=== PATIENT | male | born 1960 ===

== ENCOUNTER 2016-12-05 11:38 | Emergency (ER) | payer MEDICARE ==
[2016-12-05 11:46] VITALS: BP 131/77
[2016-12-05] MEDS ORDERED: BOOSTRIX IM ONE (12:07)
[2016-12-05] MEDS ORDERED: MOTRIN PO ONE (12:07)
--- NOTE | 2016-12-05 13:20 | XRay Report ---
Right foot 3 views: History: Foot pain. Findings: General osteopenia. No periosteal reaction or lytic lesion. Arthritic changes in the first tarsometatarsal joint. Small plantar spur. Impression: No evidence of acute fracture.
--- NOTE | 2016-12-05 22:24 | Emergency Department Report ---
Entered by TYRONE GAGNON, acting as scribe for ANETTE VIRGEN NP. ED Lower Extremity HPI - General Chief Complaint: Extremity Injury, Lower Stated Complaint: STEPPED ON LÁZARO NAIL Time Seen by Provider: 12/05/16 11:48 Source: patient Mode of arrival: Ambulatory Limitations: No Limitations - History of Present Illness Initial Comments: This is a 56 y/o male that is non-toxic, non-ill appearing, and in no acute distress with a PMHx of seizures, arthritis, IDDM, NV, and HTN with c/o right foot pain that began this morning at 1030. Patient states that he stepped on a lázaro nail this morning, and the nail subsequently went through his sandal and punctured his right foot. Patient states the nail did not completely go through his right foot. Rates pain a 10/10 in severity, which he describes as aching in quality. Aggravated with movement and weight bearing, and alleviated with nothing. Denies numbness and tingling. Denies CP, SOB, fever, chills, headache, stiff neck, bleeding, pus, drainage. Not UTD with tetanus shot. Allergic to penicillins. MD Complaint: foot injury (right) -: This morning Time: 10:30 Injury: Foot: Right Type of Injury: puncture wound (stepped on a nail) Place: home Severity: severe Severity scale (0 -10): 10 Improves With: nothing Worsens With: weight bearing, movement Context: stepped on nail Associated Symptoms: able to partially bear weight, ambulatory. denies: snap/ pop sensation, swelling, numbness, tingling, unable to bear weight - Related Data Home Medications Medication Instructions Recorded Confirmed Last Taken Aspirin [Aspirin BABY CHEW TAB] 81 mg PO QDAY 07/28/14 02/12/15 05/09/16 Lisinopril [Zestril] 20 mg PO QDAY 05/10/16 05/10/16 05/09/16 Metformin HCl [Fortamet ER] 1,000 mg PO BID 05/10/16 05/10/16 05/09/16 Previous Rx's Medication Instructions Recorded Last Taken Type Clopidogrel [Plavix] 75 mg PO QDAY #30 tablet 02/12/15 05/09/16 Rx Divalproex [Helena Barbosa] 250 mg PO TID #60 tablet 02/12/15 05/09/16 Rx Lovastatin [Altoprev] 40 mg PO QPM #30 tab.er.24h 02/12/15 Unknown Rx Ranitidine HCl [Zantac 150 MG TAB] 150 mg PO BID #60 tablet 02/12/15 Unknown Rx HYDROcodone/APAP 5-325 [[place] 1 each PO Q6HR PRN #20 tablet 05/10/16 Unknown Rx 5/325] Ibuprofen [Motrin 600 MG tab] 600 mg PO Q8H PRN #15 tablet 12/05/16 Unknown Rx Levofloxacin [Levaquin TAB] 500 mg PO QDAY #5 tablet 12/05/16 Unknown Rx Allergies Allergy/AdvReac Type Severity Reaction Status Date / Time Penicillins Allergy Unknown Verified 07/28/14 12:49 ED Review of Systems Comment: All other systems reviewed and negative Constitutional: denies: chills, fever Eyes: denies: eye pain, eye discharge, vision change ENT: denies: ear pain, throat pain Respiratory: denies: cough, orthopnea, shortness of breath, SOB with exertion, SOB at rest, stridor, wheezing Cardiovascular: denies: chest pain, palpitations, dyspnea on exertion, orthopnea , edema, syncope, paroxysmal nocturnal dyspnea Endocrine: no symptoms reported Gastrointestinal: denies: abdominal pain, nausea, vomiting, diarrhea Genitourinary: denies: urgency, dysuria Musculoskeletal: myalgia (right foot pain). denies: back pain, joint swelling, arthralgia Skin: denies: rash, lesions Neurological: denies: headache, weakness, numbness, paresthesias Psychiatric: denies: anxiety, depression Hematological/Lymphatic: denies: easy bleeding, easy bruising ED Past Medical Hx - Past Medical History Previous Medical History?: Yes Hx Hypertension: Yes Hx Heart Attack/AMI: Yes Hx Congestive Heart Failure: No Hx Diabetes: Yes (has no meds) Hx Arthritis: Yes Hx Seizures: Yes Hx Asthma: No Hx COPD: No Hx HIV: No Additional medical history: CAD - Surgical History Past Surgical History?: Yes Hx Coronary Stent: Yes Additional Surgical History: COLON SURGERY - Social History Smoking Status: Current Every Day Smoker Substance Use Type: Prescribed - Medications Home Medications: Home Medications Medication Instructions Recorded Confirmed Last Taken Type Aspirin [Aspirin BABY CHEW TAB] 81 mg PO QDAY 07/28/14 02/12/15 05/09/16 History Clopidogrel [Plavix] 75 mg PO QDAY #30 tablet 02/12/15 05/09/[address] [Helena Barbosa] 250 mg PO TID #60 tablet 02/12/15 05/09/16 Rx Lovastatin [Altoprev] 40 mg PO QPM #30 tab.er.24h 02/12/15 Unknown Rx Ranitidine HCl [Zantac 150 MG TAB] 150 mg PO BID #60 tablet 02/12/15 05/10/16 Unknown Rx HYDROcodone/APAP 5-325 [[place] 1 each PO Q6HR PRN #20 tablet 05/10/16 Unknown Rx 5/325] Lisinopril [Zestril] 20 mg PO QDAY 05/10/16 05/10/16 05/09/16 History Metformin HCl [Fortamet ER] 1,000 mg PO BID 05/10/16 05/10/16 05/09/16 History Ibuprofen [Motrin 600 MG tab] 600 mg PO Q8H PRN #15 tablet 12/05/16 Unknown Rx Levofloxacin [Levaquin TAB] 500 mg PO QDAY #5 tablet 12/05/16 Unknown Rx ED Physical Exam - General Limitations: No Limitations General appearance: alert, in no apparent distress - Head Head exam: Present: atraumatic, normocephalic - Eye Eye exam: Present: normal appearance, PERRL, EOMI Pupils: Present: normal accommodation - ENT ENT exam: Present: normal exam, normal orophraynx, mucous membranes moist, TM's normal bilaterally, normal external ear exam - Neck Neck exam: Present: normal inspection, full ROM. Absent: tenderness, meningismus, lymphadenopathy - Respiratory Respiratory exam: Present: normal lung sounds bilaterally. Absent: respiratory distress, wheezes, rales, rhonchi, stridor, chest wall tenderness, accessory muscle use, decreased breath sounds - Cardiovascular Cardiovascular Exam: Present: regular rate, normal rhythm, normal heart sounds. Absent: bradycardia, tachycardia, irregular rhythm, systolic murmur, diastolic murmur, rubs, gallop - GI/Abdominal GI/Abdominal exam: Present: soft, normal bowel sounds. Absent: distended, tenderness, guarding, rebound, rigid, diminished bowel sounds - Extremities Exam Extremities exam: Present: full ROM, normal capillary refill. Absent: tenderness, pedal edema, joint swelling, calf tenderness - Expanded Lower Extremity Exam Right Hip exam: Present: normal inspection, full ROM. Absent: tenderness, swelling, abrasion Upper Leg exam: Present: normal inspection, full ROM. Absent: tenderness, swelling Knee exam: Present: normal inspection, full ROM, full knee extension. Absent: tenderness, swelling, abrasion, laceration, ecchymosis, deformity, crepidus Lower Leg exam: Present: normal inspection, full ROM. Absent: tenderness, swelling, abrasion, Qiana's sign Ankle exam: Present: normal inspection, full ROM. Absent: tenderness, swelling , erythema, anterior draw sign Foot/Toe exam: Present: full ROM, puncture wound (very small puncture wound noted to plantar aspect of right foot with no purulent drainage, foreign body, or bleeding). Absent: tenderness, swelling, abrasion, laceration, ecchymosis, deformity, crepidus, dislocation, erythema, foreign body, calcaneal tenderness, tenderness at base of 5th metatarsal, nail avulsion, subungual hematoma Neuro vascular tendon exam: Present: no vascular compromise. Absent: pulse deficit, abnormal cap refill, motor deficit, sensory deficit, tendon deficit, extremity cold to touch, pallor, abnormal 2-point discrimination, decreased fine /light touch, foot drop, peroneal nerve deficit, significant pain with passive ROM of distal joint Gait: Positive: observed and limited by pain (limping gait due to right foot pain) 1 - Puncture wound - Back Exam Back exam: Present: normal inspection, full ROM. Absent: tenderness, CVA tenderness (R), CVA tenderness (L), muscle spasm, paraspinal tenderness, vertebral tenderness, rash noted - Neurological Exam Neurological exam: Present: alert, oriented X3, CN II-XII intact, normal gait, abnormal gait (limping gait due to right foot pain), reflexes normal. Absent: motor sensory deficit - Psychiatric Psychiatric exam: Present: normal affect, normal mood - Skin Skin exam: Present: warm, dry, intact. Absent: rash ED Course Vital Signs 12/05/16 11:43 Temperature 98.2 F Pulse Rate 80 Respiratory 20 Rate Blood Pressure 131/77 O2 Sat by Pulse 100 Oximetry - Reevaluation(s) Reevaluation #1: 12/05/16 12:19 Patient is laying in bed with no signs of distress. - Consultations Consultation #1: 12/05/16 13:[address] Urban (radiologist) and confirmed that there is no foreign body noted on x-ray imagining. ED Lower Extremity MDM - Medical Decision Making Ed course: This is a 56-year-old male that presents with puncture wound to right plantar 1- after my physical exam, pt recevied xray of right foot to r/o fx or foreign body x-ray results has been noitied to the pt with no questions noted by the pt. 2- pt received tetanus and ibuprofen AB. 3- patient received levofloxacin at the time of discharge and was instructed to finish full course of antibiotics. 4- patient was instructed to follow-up with his primary care doctor in 3-5 days or if symptoms worsen return back to emergency room as was possible. 5-the wound has been clean with saline and chlorhexidine and a sterile 4 x 4 dressing with tape has been applied at d/c ED Disposition Clinical Impression: Wound, open, puncture, Puncture wound of plantar aspect of foot Disposition: DC-01 TO HOME OR SELFCARE Is pt being admited?: No Does the pt Need Aspirin: No Condition: Stable Instructions: Ibuprofen (By mouth), Levofloxacin (By mouth), Puncture Wound (ED ), Acute Wound Care (ED) Additional Instructions: Follow-up with her primary care doctor in 3-5 days or if symptoms such as pus, drainage, swelling, numbness, tingling return back to emergency room as was possible. Take full course of antibiotics as prescribed. Prescriptions: Ibuprofen [Motrin 600 MG tab] 600 mg PO Q8H PRN #15 tablet PRN Reason: Pain Levofloxacin [Levaquin TAB] 500 mg PO QDAY #5 tablet Referrals: PRIMARY MD SHIKHA [Primary Care Provider] - 3-5 Days COLTON CUADRA JR, MD [Staff Physician] - 3-5 Days [facility] [Outside] - 3-5 Days [facility] [Outside] - 3-5 Days Forms: Work/School Release Form(ED) This documentation as recorded by the scribKALIN dougherty JASMINE,accurately reflects the service I personally performed and the decisions made by me,ANETTE VIRGEN, AMANDA.
== END 2016-12-05 14:12 | disposition home or self-care (01) ==
LOC: ED 11:38
DX: S91.331A Puncture wound without foreign body, right foot, initial encounter (principal); X58.XXXA Exposure to other specified factors, initial encounter; Y93.9 Activity, unspecified; Y92.9 Unspecified place or not applicable; Y99.9 Unspecified external cause status
CPT/HCPCS: 90471; 90715; 99283

== ENCOUNTER 2017-12-25 20:26 | Emergency (ER) | payer MEDICARE ==
[2017-12-25 21:51] VITALS: BP 184/90
[2017-12-26] MEDS ORDERED: PERCOCET 5/325 PO ONE (00:10)
--- NOTE | 2017-12-26 00:52 | XRay Report ---
FINAL REPORT EXAM: XR FOOT 3+V LT HISTORY: fall TECHNIQUE: Three views of the left foot were submitted. FINDINGS: There is no evidence of fracture or dislocation. The soft tissues are unremarkable. IMPRESSION: No acute fracture or dislocation.
--- NOTE | 2017-12-26 01:28 | Emergency Department Report ---
ED Lower Extremity HPI - General Chief Complaint: Fall Stated Complaint: FALL Time Seen by Provider: 12/26/17 01:22 Source: patient Mode of arrival: Ambulatory Limitations: No Limitations - History of Present Illness Initial Comments: 57-year-old male presents to the emergency room complaint of left foot pain status post falling while standing on a cane reaching for something in a closet today. Patient reported his pain a 10 out of 10. Patient reports a past medical history of arthritis and reports he is a diabetic but has no meds. Patient reports he has a history of seizures. She reports that he is taking Depakote dose is due tonight. Complaint: foot injury -: This evening Injury: Foot: Left Type of Injury: inversion Place: home Severity scale (0 -10): 10 Improves With: nothing Worsens With: weight bearing Associated Symptoms: swelling, able to partially bear weight - Related Data Home Medications Medication Instructions Recorded Confirmed Last Taken Aspirin [Aspirin BABY CHEW TAB] 81 mg PO QDAY 07/28/14 02/12/15 05/09/16 Lisinopril [Zestril] 20 mg PO QDAY 05/10/16 05/10/16 05/09/16 Metformin HCl [Fortamet ER] 1,000 mg PO BID 05/10/16 05/10/16 05/09/16 Previous Rx's Medication Instructions Recorded Last Taken Type Clopidogrel [Plavix] 75 mg PO QDAY #30 tablet 02/12/15 05/09/[address] [Depakote Dr] 250 mg PO TID #60 tablet 02/12/15 05/09/16 Rx Lovastatin [Altoprev] 40 mg PO QPM #30 tab.er.24h 02/12/15 Unknown Rx Ranitidine HCl [Zantac 150 MG TAB] 150 mg PO BID #60 tablet 02/12/15 Unknown Rx HYDROcodone/APAP 5-325 [[place] 1 each PO Q6HR PRN #20 tablet 05/10/16 Unknown Rx 5/325] Levofloxacin [Levaquin TAB] 500 mg PO QDAY #5 tablet 12/05/16 Unknown Rx Ibuprofen [Motrin 600 MG tab] 600 mg PO Q8H PRN #15 tablet 12/26/17 Unknown Rx Allergies Allergy/AdvReac Type Severity Reaction Status Date / Time Penicillins Allergy Unknown Verified 12/25/17 21:33 ED Review of Systems ROS: Stated complaint: FALL Other details as noted in HPI Constitutional: no symptoms reported Endocrine: no symptoms reported Gastrointestinal: denies: abdominal pain, nausea, diarrhea Musculoskeletal: joint swelling, arthralgia Skin: denies: rash, lesions Neurological: denies: numbness, paresthesias Psychiatric: denies: anxiety, depression ED Past Medical Hx - Past Medical History Hx Hypertension: Yes Hx Heart Attack/AMI: Yes Hx Congestive Heart Failure: No Hx Diabetes: Yes (has no meds) Hx Arthritis: Yes Hx Seizures: Yes Hx Asthma: No Hx COPD: No Hx HIV: No Additional medical history: CAD - Surgical History Hx Coronary Stent: Yes Additional Surgical History: COLON SURGERY - Social History Smoking Status: Current Every Day Smoker Substance Use Type: None - Medications Home Medications: Home Medications Medication Instructions Recorded Confirmed Last Taken Type Aspirin [Aspirin BABY CHEW TAB] 81 mg PO QDAY 07/28/14 02/12/15 05/09/16 History Clopidogrel [Plavix] 75 mg PO QDAY #30 tablet 02/12/15 05/09/[address] [Depakote Dr] 250 mg PO TID #60 tablet 02/12/15 05/09/16 Rx Lovastatin [Altoprev] 40 mg PO QPM #30 tab.er.24h 02/12/15 Unknown Rx Ranitidine HCl [Zantac 150 MG TAB] 150 mg PO BID #60 tablet 02/12/15 05/10/16 Unknown Rx HYDROcodone/APAP 5-325 [[place] 1 each PO Q6HR PRN #20 tablet 05/10/16 Unknown Rx 5/325] Lisinopril [Zestril] 20 mg PO QDAY 05/10/16 05/10/16 05/09/16 History Metformin HCl [Fortamet ER] 1,000 mg PO BID 05/10/16 05/10/16 05/09/16 History Levofloxacin [Levaquin TAB] 500 mg PO QDAY #5 tablet 12/05/16 Unknown Rx Ibuprofen [Motrin 600 MG tab] 600 mg PO Q8H PRN #15 tablet 12/26/17 Unknown Rx ED Physical Exam - General Limitations: No Limitations General appearance: alert, in no apparent distress - Head Head exam: Present: atraumatic, normocephalic - ENT ENT exam: Present: mucous membranes moist - Expanded Lower Extremity Exam Left Hip exam: Present: full ROM Upper Leg exam: Present: normal inspection Knee exam: Present: normal inspection Lower Leg exam: Present: normal inspection, full ROM. Absent: tenderness, swelling Ankle exam: Present: full ROM. Absent: tenderness Foot/Toe exam: Present: full ROM (able to move toes), tenderness, swelling. Absent: laceration, ecchymosis, deformity Neuro vascular tendon exam: Present: no vascular compromise. Absent: pulse deficit, abnormal cap refill, pallor - Neurological Exam Neurological exam: Present: alert, oriented X3 - Psychiatric Psychiatric exam: Present: normal affect, normal mood - Skin Skin exam: Present: warm, dry, intact, normal color. Absent: rash ED Course Vital Signs 12/25/17 21:34 Temperature 98.7 F Pulse Rate 73 Respiratory 16 Rate Blood Pressure 184/90 O2 Sat by Pulse 99 Oximetry ED Lower Extremity MDM - Radiology Data Radiology results: report reviewed, image reviewed FINAL REPORT EXAM: XR FOOT 3+V LT HISTORY: fall TECHNIQUE: Three views of the left foot were submitted. FINDINGS: There is no evidence of fracture or dislocation. The soft tissues are unremarkable. IMPRESSION: No acute fracture or dislocation. Transcribed By: RB Dictated By: SARWAT MONTELONGO MD Electronically Authenticated By: SARWAT MONTELONGO MD Signed Date/Time: 12/26/1746 DD/ TD/TT: 12/26/1746 - Medical Decision Making Patient has been evaluated by this provider fast track. X-ray shows patient has no acute fractures or dislocation Patient is given Percocet for pain management. Patient is also being given ice pack for swelling. ER telecommunications field engineer Will Timur bandage his foot and assess for need of crutches. Discussed the patient to take pain medication such as ibuprofen rest elevate where compression Timur bandage. If his symptoms persist or gets worse he needs to follow up with his primary care provider. Critical care attestation.: If time is entered above; I have spent that time in minutes in the direct care of this critically ill patient, excluding procedure time. ED Disposition Clinical Impression: Sprain of foot, left Qualifiers: Encounter type: initial encounter Qualified Code(s): S93.602A - Unspecified sprain of left foot, initial encounter Disposition: - TO HOME OR SELFCARE Is pt being admited?: No Does the pt Need Aspirin: No Condition: Stable Instructions: Foot Sprain (ED), Ankle Exercises (GEN) Additional Instructions: Please take pain medication as needed. Please wear a wrap. Elevate the foot as much as possible Ice for 20 minutes or 1 hour off 20 minutes or 1 hour off for the first 24 hours. Please try to avoid weightbearing for the first 2 days and advance as tolerated. If your foot pain persists please follow up with her primary care provider Prescriptions: Ibuprofen [Motrin 600 MG tab] 600 mg PO Q8H PRN #15 tablet PRN Reason: Pain Referrals: AMANDA BARCLAY MD [Primary Care Provider] - 3-5 Days Forms: Work/School Release Form(ED)
== END 2017-12-26 02:10 | disposition home or self-care (01) ==
LOC: ED 20:26
DX: S93.602A Unspecified sprain of left foot, initial encounter (principal); E11.9 Type 2 diabetes mellitus without complications; I11.0 Hypertensive heart disease with heart failure; M19.90 Unspecified osteoarthritis, unspecified site; F17.200 Nicotine dependence, unspecified, uncomplicated; Z79.82 Long term (current) use of aspirin; Z88.0 Allergy status to penicillin

== ENCOUNTER 2018-04-01 21:35 | Emergency (ER) | payer MEDICARE ==
[2018-04-01] MEDS ORDERED: CATAPRES PO STA (21:53)
[2018-04-01] MEDS ORDERED: TORADOL IM ONE (22:28)
--- NOTE | 2018-04-01 22:32 | Emergency Department Report ---
ED Back Pain/Injury HPI - General Chief Complaint: Back Pain/Injury Stated Complaint: BACK PAIN Time Seen by Provider: 04/01/18 22:28 Source: patient, EMS Limitations: No Limitations - History of Present Illness Initial Comments: 57-year-old male comes in for acute on chronic lower back pain after cleaning his house. Patient reports that the pain travels from his back to his stomach. Patient reports he has a history of back pain and [place] [facility] [place] [facility]. Patient denies any urinary or bowel incontinence. Has any fever or chills no nausea no vomiting. MD Complaint: back pain -: This afternoon Time: 16:00 Similar Symptoms Previously: Yes Place: home Radiation: abdomen Severity scale (0 -10): 8 Quality: sharp, aching Consistency: intermittent Improves With: none - Related Data Home Medications Medication Instructions Recorded Confirmed Last Taken Aspirin [Aspirin BABY CHEW TAB] 81 mg PO QDAY 07/28/14 02/12/15 05/09/16 Lisinopril [Zestril] 20 mg PO QDAY 05/10/16 05/10/16 05/09/16 Metformin HCl [Fortamet ER] 1,000 mg PO BID 05/10/16 05/10/16 05/09/16 Previous Rx's Medication Instructions Recorded Last Taken Type Clopidogrel [Plavix] 75 mg PO QDAY #30 tablet 02/12/15 05/09/[address] [Helena Dr] 250 mg PO TID #60 tablet 02/12/15 05/09/16 Rx Lovastatin [Altoprev] 40 mg PO QPM #30 tab.er.24h 02/12/15 Unknown Rx Ranitidine HCl [Zantac 150 MG TAB] 150 mg PO BID #60 tablet 02/12/15 Unknown Rx HYDROcodone/APAP 5-325 [Kountze 1 each PO Q6HR PRN #20 tablet 05/10/16 Unknown Rx 5/325] levoFLOXacin [Levaquin TAB] 500 mg PO QDAY #5 tablet 12/05/16 Unknown Rx Ibuprofen [Motrin 600 MG tab] 600 mg PO Q8H PRN #15 tablet 12/26/17 Unknown Rx Ketorolac [Toradol] 10 mg PO Q6H PRN #20 tablet 04/02/18 Unknown Rx Allergies Allergy/AdvReac Type Severity Reaction Status Date / Time Penicillins Allergy Unknown Verified 12/25/17 21:33 ED Review of Systems ROS: Stated complaint: BACK PAIN Other details as noted in HPI Comment: All other systems reviewed and negative Musculoskeletal: back pain ED Past Medical Hx - Past Medical History Previous Medical History?: Yes Hx Hypertension: Yes Hx Heart Attack/AMI: Yes Hx Congestive Heart Failure: No Hx Diabetes: Yes (has no meds) Hx Arthritis: Yes Hx Seizures: Yes Hx Asthma: No Hx COPD: No Hx HIV: No Additional medical history: CAD - Surgical History Past Surgical History?: Yes Hx Coronary Stent: Yes Additional Surgical History: COLON SURGERY - Social History Smoking Status: Current Every Day Smoker Substance Use Type: None - Medications Home Medications: Home Medications Medication Instructions Recorded Confirmed Last Taken Type Aspirin [Aspirin BABY CHEW TAB] 81 mg PO QDAY 07/28/14 02/12/15 05/09/16 History Clopidogrel [Plavix] 75 mg PO QDAY #30 tablet 02/12/15 05/09/[address] [Helena Dr] 250 mg PO TID #60 tablet 02/12/15 05/09/16 Rx Lovastatin [Altoprev] 40 mg PO QPM #30 tab.er.24h 02/12/15 Unknown Rx Ranitidine HCl [Zantac 150 MG TAB] 150 mg PO BID #60 tablet 02/12/15 05/10/16 Unknown Rx HYDROcodone/APAP 5-325 [Kountze 1 each PO Q6HR PRN #20 tablet 05/10/16 Unknown Rx 5/325] Lisinopril [Zestril] 20 mg PO QDAY 05/10/16 05/10/16 05/09/16 History Metformin HCl [Fortamet ER] 1,000 mg PO BID 05/10/16 05/10/16 05/09/16 History levoFLOXacin [Levaquin TAB] 500 mg PO QDAY #5 tablet 12/05/16 Unknown Rx Ibuprofen [Motrin 600 MG tab] 600 mg PO Q8H PRN #15 tablet 12/26/17 Unknown Rx Ketorolac [Toradol] 10 mg PO Q6H PRN #20 tablet 04/02/18 Unknown Rx ED Physical Exam - General Limitations: No Limitations General appearance: alert, in no apparent distress - Head Head exam: Present: atraumatic, normocephalic - Eye Eye exam: Present: EOMI - Respiratory Respiratory exam: Present: normal lung sounds bilaterally. Absent: respiratory distress - Cardiovascular Cardiovascular Exam: Present: regular rate, normal rhythm. Absent: systolic murmur, diastolic murmur, rubs, gallop - Back Exam Back exam: Present: full ROM, tenderness - Neurological Exam Neurological exam: Present: alert, oriented X3 - Psychiatric Psychiatric exam: Present: normal affect, normal mood - Skin Skin exam: Present: warm, dry, intact, normal color. Absent: rash ED Course Vital Signs 04/01/18 04/01/18 04/01/18 21:39 21:55 22:00 Temperature 99.1 F Pulse Rate 56 L 57 L 58 L Respiratory 16 16 Rate Blood Pressure 200/90 207/97 Blood Pressure 207/97 [Left] O2 Sat by Pulse 100 97 Oximetry - Reevaluation(s) Reevaluation #1: 04/01/18 23:46 Patient reports he feels much better after having Toradol injection. Patient's blood pressure has come down to the 124 over 80s. ED Medical Decision Making - Radiology Data FINDINGS: Mild subsegmental atelectasis at the dependent portions of the lower lungs. Visualized heart is normal in size. Prominent calcification of the coronary arteries. Gallbladder contracted. No calcified gallstones. Liver, spleen, pancreas are grossly unremarkable. Mild nodular thickening of adrenal glands. No nephrolithiasis or hydronephrosis. Small vascular calcifications the renal sinus fat bilaterally. Mild bilateral perinephric fat stranding which may relate to sequelae of prior inflammation. This is stable from prior study. Aorta and IVC normal in caliber. Moderate severe calcified plaque along the aorta. Infrarenal aorta measures up to 2.1 centimeters in diameter. No ureteral or urinary bladder calculi. Urinary bladder and prostate gland are grossly unremarkable. No free fluid or lymphadenopathy in the pelvic cavity. [id number] diverticulosis of the left colon. No diverticulitis. Prior right hemicolectomy with small to large bowel anastomosis and right mid to upper abdomen. No focal inflammatory changes the bowel. Lumbar vertebral body heights are preserved. Moderate severe focal degenerative changes L5-S1 level. Bony pelvis is grossly intact. IMPRESSION: Source of hematuria is not definitely localized on today's exam. There are small vascular calcifications renal sinus fat bilaterally. Otherwise, no nephrolithiasis or hydronephrosis. Mild bilateral perinephric fat stranding similar prior study likely relating to sequelae of prior inflammation. Correlation with urinalysis suggested to ensure no subtle inflammation of the kidneys. Urinary bladder and prostate gland are grossly unremarkable. No other acute findings. - Medical Decision Making Patient has been evaluated by this provider in fast track. Patient was given Toradol injection for pain management. Urinalysis showed moderate amount of blood and glucouria greater than 500. CT ordered shows no acute abnormalities. Does show some inflammatory changes. And severe degenerative disc disease. Normal saline 1 L. Blood pressure has improved since having blood pressure medication given in fast track. Now 124/64 We'll discharge patient home on Toradol 10 mg 3 times a day when necessary and for patient to follow up with his primary care provider. Critical care attestation.: If time is entered above; I have spent that time in minutes in the direct care of this critically ill patient, excluding procedure time. ED Disposition Clinical Impression: Hypertension, essential Hematuria Qualifiers: Hematuria type: unspecified type Qualified Code(s): R31.9 - Hematuria, unspecified Degenerative disc disease Qualifiers: Spinal region: thoracolumbar Qualified Code(s): M51.35 - Other intervertebral disc degeneration, thoracolumbar region Back pain Qualifiers: Back pain location: low back pain Chronicity: chronic Back pain laterality: midline Sciatica presence: without sciatica Qualified Code(s): M54.5 - Low back pain; G89.29 - Other chronic pain Disposition: DC- TO HOME OR SELFCARE Is pt being admited?: No Does the pt Need Aspirin: No Condition: Stable Instructions: Hypertension (ED) Additional Instructions: Please take pain medication as prescribed. It's very important for you to follow up with her primary care provider for further evaluation of blood being in your urine. Prescriptions: Ketorolac [Toradol] 10 mg PO Q6H PRN #20 tablet PRN Reason: Pain Referrals: DOC,ED, MD [Primary Care Provider] - 3-5 Days Your,Provider [Other] - 3-5 Days
[2018-04-01 23:25] VITALS: BP 124/64
[2018-04-01 23:37] LABS: Bilirubin,Urine NEG (Negative); Blood,Urine MOD (Negative); Color,Urine Yellow (Yellow); Protein,Urine <15 mg/dL mg/dL (Negative); Urobilinogen,Urine < 2.0 mg/dL (<2.0)
[2018-04-02] MEDS ORDERED: NACL 0.9% 1000 ML 1,000 ML IV ONE (00:18)
[2018-04-02 00:34] LABS: Basophils # (Auto) 0.1 K/mm3 (0.0-0.1); Basophils % (Auto) 0.8 % (0.0-1.8); Eosinophils # (Auto) 0.3 K/mm3 (0.0-0.4); Eosinophils % (Auto) 2.2 % (0.0-4.3); Hemoglobin 12.8 gm/dl (11.8-15.2); Lymphocytes % (Auto) 13.8 % (13.4-35.0); Mean Corpuscular HGB Conc 34 % (32-34); Mean Corpuscular Hemoglobin 31 pg (28-32); Mean Corpuscular Volume 91 fl (84-94); Monocytes # (Auto) 1.4 K/mm3 (0.0-0.8); Monocytes % (Auto) 9.7 % (0.0-7.3); Platelet Count 212 K/mm3 (140-440); Red Blood Count 4.18 M/mm3 (3.65-5.03); Red Cell Distribution Width 14.1 % (13.2-15.2)
[2018-04-02 00:50] LABS: Alanine Aminotransferase 25 units/L (7-56); Albumin 4.3 g/dL (3.9-5); BUN/Creatinine Ratio 15; Blood Urea Nitrogen 9 mg/dL (9-20); Calcium 9.3 mg/dL (8.4-10.2); Hemolysis Index 18
--- NOTE | 2018-04-02 00:56 | Cat Scan Report ---
FINAL REPORT EXAM: CT ABDOMEN PELVIS WO CON HISTORY: back pain that radiates to the front with hematuria COMPARISON: CT abdomen pelvis from May 2016. TECHNIQUE: Contiguous axial images were obtained. Additional sagittal and coronal reformatted images were obtained. FINDINGS: Mild subsegmental atelectasis at the dependent portions of the lower lungs. Visualized heart is normal in size. Prominent calcification of the coronary arteries. Gallbladder contracted. No calcified gallstones. Liver, spleen, pancreas are grossly unremarkable. Mild nodular thickening of adrenal glands. No nephrolithiasis or hydronephrosis. Small vascular calcifications the renal sinus fat bilaterally. Mild bilateral perinephric fat stranding which may relate to sequelae of prior inflammation. This is stable from prior study. Aorta and IVC normal in caliber. Moderate severe calcified plaque along the aorta. Infrarenal aorta measures up to 2.1 centimeters in diameter. No ureteral or urinary bladder calculi. Urinary bladder and prostate gland are grossly unremarkable. No free fluid or lymphadenopathy in the pelvic cavity. Ytxs-jx-yjhbbehx diverticulosis of the left colon. No diverticulitis. Prior right hemicolectomy with small to large bowel anastomosis and right mid to upper abdomen. No focal inflammatory changes the bowel. Lumbar vertebral body heights are preserved. Moderate severe focal degenerative changes L5-S1 level. Bony pelvis is grossly intact. IMPRESSION: Source of hematuria is not definitely localized on today's exam. There are small vascular calcifications renal sinus fat bilaterally. Otherwise, no nephrolithiasis or hydronephrosis. Mild bilateral perinephric fat stranding similar prior study likely relating to sequelae of prior inflammation. Correlation with urinalysis suggested to ensure no subtle inflammation of the kidneys. Urinary bladder and prostate gland are grossly unremarkable. No other acute findings.
== END 2018-04-02 01:18 | disposition home or self-care (01) ==
LOC: ED 21:35
DX: M51.35 Other intervertebral disc degeneration, thoracolumbar region (principal); R31.9 Hematuria, unspecified; I10 Essential (primary) hypertension; I25.2 Old myocardial infarction; E11.9 Type 2 diabetes mellitus without complications; M19.90 Unspecified osteoarthritis, unspecified site; I25.10 Atherosclerotic heart disease of native coronary artery without angina pectoris; F17.200 Nicotine dependence, unspecified, uncomplicated; Z95.818 Presence of other cardiac implants and grafts; Z79.899 Other long term (current) drug therapy; Z88.0 Allergy status to penicillin
CPT/HCPCS: 36415; 74176; 80053; 81001; 82962; 85025; 96372; 99285; J1885; J7030

== ENCOUNTER 2020-05-06 11:42 | Emergency (ER) | payer MEDICARE ==
[2020-05-06 11:53] VITALS: BP 182/63
[2020-05-06] MEDS ORDERED: traMADol 50 MG TAB PO ONE (13:16)
[2020-05-06] MEDS ORDERED: KETOROLAC 60 MG/2 ML INJ IM ONE (13:16)
[2020-05-06] MEDS ORDERED: dexAMETHasone 20 MG/5 ML VIAL IM ONE (13:16)
--- NOTE | 2020-05-06 14:12 | Emergency Department Report ---
ED Back Pain/Injury HPI - General Chief Complaint: Back Pain/Injury Stated Complaint: BACK PAIN Time Seen by Provider: 05/06/20 13:09 Source: patient Mode of arrival: Ambulatory Limitations: No Limitations - History of Present Illness Initial Comments: Patient is a 59-year-old male presents emergency room with complaints of a "pulled back muscle" that occurred 3 days ago. Patient states that a tire went flat on his car and he went to change the tire and when he pulled off the tire he felt a pull in his right lower back. He states he believes he pulled a muscle. He states since then he has been having right lower back pain. He denies any fall. He denies any numbness, weakness, bowel or bladder incontinence, fever, nausea, vomiting, diarrhea, dysuria, hematuria, dark urine. He has a past medical history of HTN, CAD, DM, epilepsy. He has an allergy to penicillin. he states he has had this similar back pain in the past. - Related Data Home Medications Medication Instructions Recorded Confirmed Last Taken Aspirin [Aspirin BABY CHEW TAB] 81 mg PO QDAY 07/28/14 02/12/15 05/09/16 Metformin HCl [Fortamet ER] 1,000 mg PO BID 05/10/16 05/10/16 05/09/16 lisinopriL [Zestril] 20 mg PO QDAY 05/10/16 05/10/16 05/09/16 Previous Rx's Medication Instructions Recorded Last Taken Type Clopidogrel [Plavix] 75 mg PO QDAY #30 tablet 02/12/15 05/09/16 Rx Divalproex [Helena Barbosa] 250 mg PO TID #60 tablet 02/12/15 05/09/16 Rx Lovastatin [Altoprev] 40 mg PO QPM #30 tab.er.24h 02/12/15 Unknown Rx raNITIdine HCl [Zantac] 150 mg PO BID #60 tablet 02/12/15 Unknown Rx HYDROcodone/APAP 5-325 [Carter 1 each PO Q6HR PRN #20 tablet 05/10/16 Unknown Rx 5/325] levoFLOXacin [Levaquin TAB] 500 mg PO QDAY #5 tablet 12/05/16 Unknown Rx Ibuprofen [Motrin 600 MG tab] 600 mg PO Q8H PRN #15 tablet 12/26/17 Unknown Rx Ketorolac [Toradol] 10 mg PO Q6H PRN #20 tablet 04/02/18 Unknown Rx Naproxen [EC-Naprosyn] 500 mg PO BID PRN #14 tablet. 05/06/20 Unknown Rx methOCARBAMOL [Robaxin TAB] 500 mg PO BID PRN #14 tab 05/06/20 Unknown Rx Allergies Allergy/AdvReac Type Severity Reaction Status Date / Time Penicillins Allergy Unknown Verified 05/06/20 11:50 ED Review of Systems ROS: Stated complaint: BACK PAIN Other details as noted in HPI Comment: All other systems reviewed and negative ED Past Medical Hx - Past Medical History Hx Hypertension: Yes Hx Heart Attack/AMI: Yes Hx Congestive Heart Failure: No Hx Diabetes: Yes (has no meds) Hx Arthritis: Yes Hx Seizures: Yes Hx Asthma: No Hx COPD: No Hx HIV: No Additional medical history: CAD - Surgical History Hx Coronary Stent: Yes Additional Surgical History: COLON SURGERY - Social History Smoking Status: Never Smoker Substance Use Type: None - Medications Home Medications: Home Medications Medication Instructions Recorded Confirmed Last Taken Type Aspirin [Aspirin BABY CHEW TAB] 81 mg PO QDAY 07/28/14 02/12/15 05/09/16 History Clopidogrel [Plavix] 75 mg PO QDAY #30 tablet 02/12/15 05/09/16 Rx Divalproex [Helena Barbosa] 250 mg PO TID #60 tablet 02/12/15 05/09/16 Rx Lovastatin [Altoprev] 40 mg PO QPM #30 tab.er.24h 02/12/15 Unknown Rx raNITIdine HCl [Zantac] 150 mg PO BID #60 tablet 02/12/15 05/10/16 Unknown Rx HYDROcodone/APAP 5-325 [Carter 1 each PO Q6HR PRN #20 tablet 05/10/16 Unknown Rx 5/325] Metformin HCl [Fortamet ER] 1,000 mg PO BID 05/10/16 05/10/16 05/09/16 History lisinopriL [Zestril] 20 mg PO QDAY 05/10/16 05/10/16 05/09/16 History levoFLOXacin [Levaquin TAB] 500 mg PO QDAY #5 tablet 12/05/16 Unknown Rx Ibuprofen [Motrin 600 MG tab] 600 mg PO Q8H PRN #15 tablet 12/26/17 Unknown Rx Ketorolac [Toradol] 10 mg PO Q6H PRN #20 tablet 04/02/18 Unknown Rx Naproxen [EC-Naprosyn] 500 mg PO BID PRN #14 tablet. 05/06/20 Unknown Rx methOCARBAMOL [Robaxin TAB] 500 mg PO BID PRN #14 tab 05/06/20 Unknown Rx ED Physical Exam - General Limitations: No Limitations General appearance: alert, in no apparent distress - Head Head exam: Present: atraumatic, normocephalic - Eye Eye exam: Present: normal appearance - ENT ENT exam: Present: mucous membranes moist - Neck Neck exam: Present: normal inspection, full ROM. Absent: tenderness - Respiratory Respiratory exam: Present: normal lung sounds bilaterally. Absent: respiratory distress, wheezes, rales, rhonchi, stridor, chest wall tenderness, accessory muscle use, decreased breath sounds, prolonged expiratory - Cardiovascular Cardiovascular Exam: Present: regular rate, normal rhythm, normal heart sounds. Absent: systolic murmur, diastolic murmur, rubs, gallop - Back Exam Back exam: Present: normal inspection, full ROM, paraspinal tenderness (right lumbar paraspinal muscular ttp, no midline C-spine, T-spine or L-spine ttp, no step offs, no deformities). Absent: vertebral tenderness - Neurological Exam Neurological exam: Present: alert, oriented X3, CN II-XII intact, normal gait. Absent: motor sensory deficit - Psychiatric Psychiatric exam: Present: normal affect, normal mood - Skin Skin exam: Present: warm, dry, intact ED Course Vital Signs 05/06/20 05/06/20 05/06/20 11:52 13:30 13:31 Temperature 98.2 F Pulse Rate 65 Respiratory 18 18 18 Rate Blood Pressure 182/63 O2 Sat by Pulse 98 Oximetry ED Medical Decision Making - Radiology Data Radiology results: report reviewed Ordering Physician: SABAS RODRIGUEZ Date of Service: 05/06/20 Procedure(s): XR spine lumbosacral 2-3V Accession Number(s): [id number] cc: SABAS RODRIGUEZ Fluoro Time In Minutes: XR spine lumbosacral 2-3V INDICATION / CLINICAL INFORMATION: low back pain. COMPARISON: None FINDINGS: VERTEBRAE: No acute fracture. No significant malalignment. DISC SPACES / FACET JOINTS:Moderate multilevel degenerative changes, most pronounced at L5-S1. PARASPINAL SOFT TISSUES:No significant abnormality. ADDITIONAL FINDINGS: None. IMPRESSION: Moderate lower lumbar spondylosis. No acute process. Signer Name: Curtis Avelar MD Signed: 05/06/2020 2:24 PM Workstation Name: [id number] Transcribed By: DANIEL Dictated By: CURTIS MC MD Electronically Authenticated By: CURTIS MC MD Signed Date/Time: 05/06/201423 DD/ 22 TD/TT: - Medical Decision Making Patient is a 59-year-old male presents emergency room with complaints of a "pulled back muscle" that occurred 3 days ago. Patient states that a tire went flat on his car and he went to change the tire and when he pulled off the tire he felt a pull in his right lower back. He states he believes he pulled a muscle. He states since then he has been having right lower back pain. He denies any fall. He denies any numbness, weakness, bowel or bladder incontinence, fever, nausea, vomiting, diarrhea, dysuria, hematuria, dark urine. He has a past medical history of HTN, CAD, DM, epilepsy. He has an allergy to penicillin. he states he has had this similar back pain in the past. VSS. on exam:right lumbar paraspinal muscular ttp, no midline C-spine, T-spine or L- spine ttp, no step offs, no deformities, no focal neuro deficits. XR L-spine: Moderate lower lumbar spondylosis. No acute process. Patient given Decadron, Toradol, tramadol and symptoms completely resolved and patient was feeling much better and ready to go home. Discussed all findings with patient and answered questions. Patient does not have any red flag warning signs of back pain, no trauma, no unexplained weight loss, no focal neuro deficits, no fever, no IV drug use, no steroid use, no history of cancer. Patient given prescription for naproxen and Robaxin. Advised patient Please take medication as prescribed as needed. Do not drive or operate machinery while taking muscle relaxer Robaxin. May use ice pack, heating pad, rest, Epsom salt bath. Follow-up with your primary care doctor for reexamination. Return to emergency room for any new or worsening symptoms. - Differential Diagnosis Muscle strain, DDD, bulging disc, sciatica, spondylosis, spondylolisthesis Critical care attestation.: If time is entered above; I have spent that time in minutes in the direct care of this critically ill patient, excluding procedure time. ED Disposition Clinical Impression: Lumbar spondylosis Acute lumbar myofascial strain Qualifiers: Encounter type: initial encounter Qualified Code(s): S39.012A - Strain of muscle, fascia and tendon of lower back, initial encounter Disposition: TO HOME OR SELFCARE Is pt being admited?: No Does the pt Need Aspirin: No Condition: Stable Instructions: Osteoarthritis, Lumbar Strain Additional Instructions: Please take medication as prescribed as needed. Do not drive or operate machinery while taking muscle relaxer Robaxin. May use ice pack, heating pad, rest, Epsom salt bath. Follow-up with your primary care doctor for reexamination. Return to emergency room for any new or worsening symptoms. Prescriptions: Naproxen [EC-Naprosyn] 500 mg PO BID PRN #14 tablet. PRN Reason: pain methOCARBAMOL [Robaxin TAB] 500 mg PO BID PRN #14 tab PRN Reason: pain Referrals: KWAKU DUENAS MD [Staff Physician] - 3-[address] [facility] [Provider Group] - 3-5 Days Time of Disposition: 14:36 Print Language: FILIPINO
--- NOTE | 2020-05-06 14:28 | XRay Report ---
XR spine lumbosacral 2-3V INDICATION / CLINICAL INFORMATION: low back pain. COMPARISON: None FINDINGS: VERTEBRAE: No acute fracture. No significant malalignment. DISC SPACES / FACET JOINTS:Moderate multilevel degenerative changes, most pronounced at L5-S1. PARASPINAL SOFT TISSUES:No significant abnormality. ADDITIONAL FINDINGS: None. IMPRESSION: Moderate lower lumbar spondylosis. No acute process. Signer Name: Jorge Avelar MD Signed: 05/06/2020 2:24 PM Workstation Name: [id number]
== END 2020-05-06 14:52 | disposition home or self-care (01) ==
LOC: ED 11:42
DX: S39.012A Strain of muscle, fascia and tendon of lower back, initial encounter (principal); M47.896 Other spondylosis, lumbar region; I10 Essential (primary) hypertension; E11.9 Type 2 diabetes mellitus without complications; M19.90 Unspecified osteoarthritis, unspecified site; G40.909 Epilepsy, unspecified, not intractable, without status epilepticus; Z79.899 Other long term (current) drug therapy; Z88.0 Allergy status to penicillin; X58.XXXA Exposure to other specified factors, initial encounter; Y93.89 Activity, other specified; Y92.89 Other specified places as the place of occurrence of the external cause; Y99.8 Other external cause status
CPT/HCPCS: 72100; 96372; 99283; J1100; J1885

== ENCOUNTER 2020-06-17 09:16 | Emergency (ER) | payer MEDICARE ==
[2020-06-17 09:30] VITALS: BP 193/82
--- NOTE | 2020-06-17 09:37 | Event Note ---
ED Screening Note Date of service: 06/17/20 Time: 09:31 ED Screening Note: Pt complains of left facial pain and swelling along with dental significant swelling and tenderness noted to face This initial assessment/diagnostic orders/clinical plan/treatment(s) is/are subject to change based on patients health status, clinical progression and re- assessment by fellow clinical providers in the ED. Further treatment and workup at subsequent clinical providers discretion. Patient/guardian urged not to elope from the ED as their condition may be serious if not clinically assessed and managed. Initial orders include: labs CT
[2020-06-17] MEDS ORDERED: HYDROcodone/ACETAMINOPHEN 5-325 MG TAB PO ONE (11:19)
[2020-06-17] MEDS ORDERED: CLINDAMYCIN 150 MG/ML VIAL 6 ML IM ONE (11:19)
--- NOTE | 2020-06-17 11:26 | Emergency Department Report ---
ED ENT HPI - General Chief complaint: Skin/Abscess/Foreign Body Stated complaint: facial swelling Time Seen by Provider: 06/17/20 09:29 Source: patient Mode of arrival: Ambulatory Limitations: No Limitations - History of Present Illness Initial comments: Patient is a 59-year-old male who presents the emergency room with complaints of left upper dental pain that began 3 days ago. He states that yesterday when he woke up there was significant swelling to his face. He states that he saw his doctor and was placed on clindamycin 150 mg 4 times a day. He denies any fever, chills, vomiting, diarrhea, nausea, difficulty swallowing, difficulty breathing. He states he last saw a dentist 5 to 6 months ago and needs to have teeth extracted. He states he did have teeth extracted approximately 6 months ago but still needs to have more completed. He has a past medical history of CAD, HTN, HLD, DM, seizure. He has an allergy to penicillin. - Related Data Home Medications Medication Instructions Recorded Confirmed Last Taken Aspirin [Aspirin BABY CHEW TAB] 81 mg PO QDAY 07/28/14 02/12/15 05/09/16 Metformin HCl [Fortamet ER] 1,000 mg PO BID 05/10/16 05/10/16 05/09/16 lisinopriL [Zestril] 20 mg PO QDAY 05/10/16 05/10/16 05/09/16 Previous Rx's Medication Instructions Recorded Last Taken Type Clopidogrel [Plavix] 75 mg PO QDAY #30 tablet 02/12/15 05/09/16 Rx Divalproex [Helena Barbosa] 250 mg PO TID #60 tablet 02/12/15 05/09/16 Rx Lovastatin [Altoprev] 40 mg PO QPM #30 tab.er.24h 02/12/15 Unknown Rx raNITIdine HCl [Zantac] 150 mg PO BID #60 tablet 02/12/15 Unknown Rx levoFLOXacin [Levaquin TAB] 500 mg PO QDAY #5 tablet 12/05/16 Unknown Rx Ketorolac [Toradol] 10 mg PO Q6H PRN #20 tablet 04/02/18 Unknown Rx Naproxen [EC-Naprosyn] 500 mg PO BID PRN #14 tablet. 05/06/20 Unknown Rx methOCARBAMOL [Robaxin TAB] 500 mg PO BID PRN #14 tab 05/06/20 Unknown Rx Clindamycin [Clindamycin CAP] 450 mg PO TID 7 Days #63 capsule 06/17/20 Unknown Rx HYDROcodone/APAP 5-325 [[place] 1 each PO Q6HR PRN #12 tablet 06/17/20 Unknown Rx 5-325 mg TAB] Ibuprofen [Motrin 600 MG tab] 600 mg PO Q8H PRN #15 tablet 06/17/20 Unknown Rx Allergies Allergy/AdvReac Type Severity Reaction Status Date / Time Penicillins Allergy Unknown Verified 05/06/20 11:50 ED Dental HPI - General Chief complaint: Skin/Abscess/Foreign Body Stated complaint: facial swelling Time Seen by Provider: 06/17/20 09:29 Source: patient Mode of arrival: Ambulatory Limitations: No Limitations - Related Data Home Medications Medication Instructions Recorded Confirmed Last Taken Aspirin [Aspirin BABY CHEW TAB] 81 mg PO QDAY 07/28/14 02/12/15 05/09/16 Metformin HCl [Fortamet ER] 1,000 mg PO BID 05/10/16 05/10/16 05/09/16 lisinopriL [Zestril] 20 mg PO QDAY 05/10/16 05/10/16 05/09/16 Previous Rx's Medication Instructions Recorded Last Taken Type Clopidogrel [Plavix] 75 mg PO QDAY #30 tablet 02/12/15 05/09/16 Rx Divalproex [Helena Barbosa] 250 mg PO TID #60 tablet 02/12/15 05/09/16 Rx Lovastatin [Altoprev] 40 mg PO QPM #30 tab.er.24h 02/12/15 Unknown Rx raNITIdine HCl [Zantac] 150 mg PO BID #60 tablet 02/12/15 Unknown Rx levoFLOXacin [Levaquin TAB] 500 mg PO QDAY #5 tablet 12/05/16 Unknown Rx Ketorolac [Toradol] 10 mg PO Q6H PRN #20 tablet 04/02/18 Unknown Rx Naproxen [EC-Naprosyn] 500 mg PO BID PRN #14 tablet. 05/06/20 Unknown Rx methOCARBAMOL [Robaxin TAB] 500 mg PO BID PRN #14 tab 05/06/20 Unknown Rx Clindamycin [Clindamycin CAP] 450 mg PO TID 7 Days #63 capsule 06/17/20 Unknown Rx HYDROcodone/APAP 5-325 [[place] 1 each PO Q6HR PRN #12 tablet 06/17/20 Unknown Rx 5-325 mg TAB] Ibuprofen [Motrin 600 MG tab] 600 mg PO Q8H PRN #15 tablet 06/17/20 Unknown Rx Allergies Allergy/AdvReac Type Severity Reaction Status Date / Time Penicillins Allergy Unknown Verified 05/06/20 11:50 ED Review of Systems ROS: Stated complaint: facial swelling Other details as noted in HPI Comment: All other systems reviewed and negative ED Past Medical Hx - Past Medical History Previous Medical History?: Yes Hx Hypertension: Yes Hx Heart Attack/AMI: Yes Hx Congestive Heart Failure: No Hx Diabetes: Yes (has no meds) Hx Arthritis: Yes Hx Seizures: Yes Hx Asthma: No Hx COPD: No Hx HIV: No Additional medical history: CAD - Surgical History Past Surgical History?: Yes Hx Coronary Stent: Yes Additional Surgical History: COLON SURGERY - Social History Smoking Status: Current Every Day Smoker Substance Use Type: None - Medications Home Medications: Home Medications Medication Instructions Recorded Confirmed Last Taken Type Aspirin [Aspirin BABY CHEW TAB] 81 mg PO QDAY 07/28/14 02/12/15 05/09/16 History Clopidogrel [Plavix] 75 mg PO QDAY #30 tablet 02/12/15 05/09/16 Rx Divalproex [Helena Barbosa] 250 mg PO TID #60 tablet 02/12/15 05/09/16 Rx Lovastatin [Altoprev] 40 mg PO QPM #30 tab.er.24h 02/12/15 Unknown Rx raNITIdine HCl [Zantac] 150 mg PO BID #60 tablet 02/12/15 05/10/16 Unknown Rx Metformin HCl [Fortamet ER] 1,000 mg PO BID 05/10/16 05/10/16 05/09/16 History lisinopriL [Zestril] 20 mg PO QDAY 05/10/16 05/10/16 05/09/16 History levoFLOXacin [Levaquin TAB] 500 mg PO QDAY #5 tablet 12/05/16 Unknown Rx Ketorolac [Toradol] 10 mg PO Q6H PRN #20 tablet 04/02/18 Unknown Rx Naproxen [EC-Naprosyn] 500 mg PO BID PRN #14 05/06/20 Unknown Rx methOCARBAMOL [Robaxin TAB] 500 mg PO BID PRN #14 tab 05/06/20 Unknown Rx Clindamycin [Clindamycin CAP] 450 mg PO TID 7 Days #63 capsule 06/17/20 Unknown Rx HYDROcodone/APAP 5-325 [[place] 1 each PO Q6HR PRN #12 tablet 06/17/20 Unknown Rx 5-325 mg TAB] Ibuprofen [Motrin 600 MG tab] 600 mg PO Q8H PRN #15 tablet 06/17/20 Unknown Rx ED Physical Exam - General Limitations: No Limitations General appearance: alert, in no apparent distress - Eye Eye exam: Present: normal appearance - ENT ENT exam: Present: mucous membranes moist, other (multiple dental carries and dental decay, multiple missing teeth, there is edema and induration present to the left upper gumline and the left maxillary region, no crepitus, no fluctuance, uvula is midline, no uvular edema or deviation, no trismus, no tongue elevation, no muffled voice) - Respiratory Respiratory exam: Present: normal lung sounds bilaterally. Absent: respiratory distress, wheezes, rales, rhonchi, stridor, chest wall tenderness, accessory muscle use, decreased breath sounds, prolonged expiratory - Cardiovascular Cardiovascular Exam: Present: regular rate, normal rhythm, normal heart sounds. Absent: systolic murmur, diastolic murmur, rubs, gallop - Neurological Exam Neurological exam: Present: alert, oriented X3 - Psychiatric Psychiatric exam: Present: normal affect, normal mood - Skin Skin exam: Present: warm, dry, intact ED Course Vital Signs 06/17/20 09:26 Temperature 98.6 F Pulse Rate 87 Respiratory 18 Rate Blood Pressure 193/82 O2 Sat by Pulse 99 Oximetry ED Medical Decision Making - Medical Decision Making Patient is a 59-year-old male who presents the emergency room with complaints of left upper dental pain that began 3 days ago. He states that yesterday when he woke up there was significant swelling to his face. He states that he saw his doctor and was placed on clindamycin 150 mg 4 times a day. He denies any fever, chills, vomiting, diarrhea, nausea, difficulty swallowing, difficulty breathing. He states he last saw a dentist 5 to 6 months ago and needs to have teeth extracted. He states he did have teeth extracted approximately 6 months ago but still needs to have more completed. He has a past medical history of CAD, HTN, HLD, DM, seizure. He has an allergy to penicillin. vitals with elevated BP, pt has chronic HTN, otherwise stable, discussed medication compliance, lifestyle modification and PCP follow up. on exam: multiple dental carries and dental decay, multiple missing teeth, there is edema and induration present to the left upper gumline and the left maxillary region, no crepitus, no fluctuance, uvula is midline, no uvular edema or deviation, no trismus, no tongue elevation, no muffled voice. Examination is consistent with dental abscess and facial cellulitis. No signs of significant facial abscess or Phi's at this time. Patient given clindamycin IM while in the emergency department. Patient given prescription for clindamycin, norco, and ibuprofen. Discussed patient history and examination with Dr. Tori Yarbrough, ER attending who agrees with treatment plan and outpatient dental referral. advised pt I am increasing your dose of antibiotics. Please take medication as prescribed. Do not drive or operate heavy machinery while taking severe pain medication. Please follow-up with a dentist. It is very important that you follow-up with a dentist. Return to emergency room immediately for any new or worsening symptoms. Critical care attestation.: If time is entered above; I have spent that time in minutes in the direct care of this critically ill patient, excluding procedure time. ED Disposition Clinical Impression: Dental abscess, Facial cellulitis Disposition: TO HOME OR SELFCARE Is pt being admited?: No Does the pt Need Aspirin: No Condition: Stable Instructions: Cellulitis, Adult, Dental Abscess, [id number] Additional Instructions: I am increasing your dose of antibiotics. Please take medication as prescribed. Do not drive or operate heavy machinery while taking severe pain medication. Please follow-up with a dentist. It is very important that you follow-up with a dentist. Return to emergency room immediately for any new or worsening symptoms. Prescriptions: Clindamycin [Clindamycin CAP] 450 mg PO TID 7 Days #63 capsule Ibuprofen [Motrin 600 MG tab] 600 mg PO Q8H PRN #15 tablet PRN Reason: Pain HYDROcodone/APAP 5-325 [[place] 5-325 mg TAB] 1 each PO Q6HR PRN #12 tablet PRN Reason: Pain , Severe (7-10) Referrals: DURAN LOFTON MD [Primary Care Provider] - 2-3 Days [facility] [Outside] - 2-3 Days [facility] [Outside] - 2-3 Days Time of Disposition: 11:24 Print Language: FRENCH
== END 2020-06-17 12:23 | disposition home or self-care (01) ==
LOC: ED 09:16
DX: K04.7 Periapical abscess without sinus (principal); L03.211 Cellulitis of face; I25.2 Old myocardial infarction; I10 Essential (primary) hypertension; E11.9 Type 2 diabetes mellitus without complications; M19.91 Primary osteoarthritis, unspecified site; F17.200 Nicotine dependence, unspecified, uncomplicated; Z98.890 Other specified postprocedural states; Z79.1 Long term (current) use of non-steroidal anti-inflammatories (NSAID); Z79.2 Long term (current) use of antibiotics; Z79.899 Other long term (current) drug therapy; Z88.0 Allergy status to penicillin
CPT/HCPCS: 96372; 99282

== ENCOUNTER 2020-12-23 11:42 | Emergency (ER) | payer MEDICARE ==
--- NOTE | 2020-12-23 12:33 | Event Note ---
ED Screening Note Date of service: 12/23/20 Time: 12:31 ED Screening Note: 60-year-old male patient presents to the emergency department with complaints of chest pain, shoulder pain, arm pain, ankle pain, and "left side pain" status post fall yesterday. Patient states he fell approximately 13 feet off of a roof. No head injury or loss of consciousness. No neck pain. Patient is hemodynamically stable in triage, no focal neurological deficits. Left shoulder sling in place. ABC's intact. Patient is fully dressed in triage; unable to properly proceed with secondary assessment. Charge nurse notified of need for exam room to determine extent of patient's injuries and order appropriate diagnostic studies. I have greeted and performed a focused rapid initial assessment of this patient. A comprehensive ED assessment and evaluation of the patient, analysis of all test results, and completion of the medical decision-making process will be conducted by additional ED providers. This initial assessment/diagnostic orders/clinical plan/treatment(s) is/are subject to change based on patients health status, clinical progression and re-assessment. Further treatment and workup at subsequent clinical provider's discretion. Patient/guardian urged not to elope from the ED as their condition may be serious if not clinically assessed and managed.
[2020-12-23] MEDS ORDERED: ACETAMINOPHEN 500 MG TAB PO ONE (14:22)
[2020-12-23] MEDS ORDERED: oxyCODONE /ACETAMINOPHEN 5-325MG TAB PO ONE (19:05)
--- NOTE | 2020-12-23 19:14 | Emergency Department Report ---
HPI - General Chief Complaint: Extremity Injury, Upper Time Seen by Provider: 12/23/20 18:28 - HPI HPI: This is a 60-year-old male who presents to the emergency department with complaints of pain to the left arm, left rib cage, and bilateral hips, after he accidentally fell off his roof while trying to clean the gutter. The patient says that he fell a total of about 13 feet and onto his left side on concrete. He denies hitting his head or any loss of consciousness. He denies any headache, neck pain, back pain, numbness or paresthesias, lacerations. He did not take anything for his symptoms prior to presentation. He has a past medical history of arthritis, diabetes, coronary artery disease, hypertension, seizures. ED Past Medical Hx - Past Medical History Previous Medical History?: Yes Hx Hypertension: Yes Hx Heart Attack/AMI: Yes Hx Congestive Heart Failure: No Hx Diabetes: Yes (has no meds) Hx Arthritis: Yes Hx Seizures: Yes Hx Asthma: No Hx COPD: No Hx HIV: No Additional medical history: CAD - Surgical History Hx Coronary Stent: Yes Additional Surgical History: COLON SURGERY - Social History Smoking Status: Current Every Day Smoker Substance Use Type: None - Medications Home Medications: Home Medications Medication Instructions Recorded Confirmed Last Taken Type Aspirin [Aspirin BABY CHEW TAB] 81 mg PO QDAY 07/28/14 02/12/15 05/09/16 History Clopidogrel [Plavix] 75 mg PO QDAY #30 tablet 02/12/15 05/09/[address] [Depakote Dr] 250 mg PO TID #60 tablet 02/12/15 05/09/16 Rx Lovastatin [Altoprev] 40 mg PO QPM #30 tab.er.24h 02/12/15 Unknown Rx raNITIdine HCl [Zantac] 150 mg PO BID #60 tablet 02/12/15 05/10/16 Unknown Rx Metformin HCl [Fortamet ER] 1,000 mg PO BID 05/10/16 05/10/16 05/09/16 History lisinopriL [Zestril] 20 mg PO QDAY 05/10/16 05/10/16 05/09/16 History levoFLOXacin [Levaquin TAB] 500 mg PO QDAY #5 tablet 12/05/16 Unknown Rx Ketorolac [Toradol] 10 mg PO Q6H PRN #20 tablet 04/02/18 Unknown Rx Naproxen [EC-Naprosyn] 500 mg PO BID PRN #14 tablet. 05/06/20 Unknown Rx methOCARBAMOL [Robaxin TAB] 500 mg PO BID PRN #14 tab 05/06/20 Unknown Rx Clindamycin [Clindamycin CAP] 450 mg PO TID 7 Days #63 capsule 06/17/20 Unknown Rx Ibuprofen [Motrin 600 MG tab] 600 mg PO Q8H PRN #15 tablet 06/17/20 Unknown Rx HYDROcodone/APAP 5-325 [Ryan 1 each PO Q6HR PRN #12 tablet 12/23/20 Unknown Rx 5-325 mg TAB] ED Review of Systems ROS: Stated complaint: FELL OFF ROOF LT ARM Other details as noted in HPI Comment: All other systems reviewed and negative Constitutional: denies: chills, fever Eyes: denies: eye pain, vision change ENT: denies: ear pain, throat pain Respiratory: denies: cough, shortness of breath Cardiovascular: chest pain (left sided chest wall / rib pain). denies: edema Gastrointestinal: denies: abdominal pain, vomiting Genitourinary: denies: dysuria, discharge Musculoskeletal: arthralgia, myalgia. denies: back pain Skin: denies: rash, lesions Neurological: denies: headache, numbness, paresthesias Physical Exam - Physical Exam Vital Signs: Vital Signs 12/23/20 12:18 Temperature 98.9 F Pulse Rate 73 Respiratory 18 Rate Blood Pressure 154/76 [Right] O2 Sat by Pulse 97 Oximetry Physical Exam: GENERAL: The patient is well-developed well-nourished. HENT: Normocephalic. Atraumatic. Patient has moist mucous membranes. EYES: Extraocular motions are intact. NECK: Supple. Trachea is midline. No tenderness to palpation. CHEST/LUNGS: Clear to auscultation. There is no respiratory distress noted. There is some reproducible left-sided rib/chest wall pain to palpation. No crepitus or deformity. HEART/CARDIOVASCULAR: Regular. There is no tachycardia. There is no murmur. ABDOMEN: Abdomen is soft, nontender. Patient has normal bowel sounds. There is no abdominal distention. SKIN: Skin is warm and dry. NEURO: The patient is awake, alert, and oriented. The patient is cooperative. The patient has no focal neurologic deficits. Normal speech. MUSCULOSKELETAL: There is tenderness to palpation to the left shoulder, left upper extremity, bilateral hips, and along the left rib cage. Decreased range of motion of the left upper extremity secondary to pain. Radial pulse +24 and capillary refill less than 2 seconds to the affected left upper extremity. BACK: No midline thoracic or lumbar tenderness to palpation. ED Course Vital Signs 12/23/20 12:18 Temperature 98.9 F Pulse Rate 73 Respiratory 18 Rate Blood Pressure 154/76 [Right] O2 Sat by Pulse 97 Oximetry ED Medical Decision Making - Lab Data Result diagrams: 12/23/20 19:14 12/23/20 19:14 - Radiology Data Radiology results: report reviewed, image reviewed interpreted by me: Chest x-ray does not show any acute process. There are no pleural effusions, obvious pneumonia and there is no pneumothorax. No rib fractures. No widened mediastinum. X-ray of the pelvis and bilateral hips does not show any fracture, dislocation, or any acute process. Left forearm 2 views INDICATION: Left forearm pain following injury IMPRESSION: No forearm fracture identified. Left humerus 2 views INDICATION: Left humerus pain following injury IMPRESSION: There is a mildly displaced fracture identified involving the greater tuberosity of the proximal left humerus. No distal humeral fracture identified. Lumbar spine 3 views INDICATION: Low back pain following injury IMPRESSION: Multilevel discogenic and facet arthropathy. There is mild loss of vertebral body height involving the L2 and T12 and T11 vertebral bodies, age indeterminate. Moderate neural foraminal stenosis at L5-S1 secondary to discogenic degenerative change Thoracic spine 2 views INDICATION: Back pain following injury IMPRESSION: There is mild dextrocurvature of the lumbar spine with mild multilevel discogenic and facet arthropathy. There is mild loss of vertebral body height involving T8, T9, T10-T11 and T12, age indeterminate. There is some osteopenia present diffusely. There is extensive multilevel discogenic degenerative changes throughout much of the mid and lower thoracic spine. - Medical Decision Making This patient presents to the emergency department with a complaint of pain to left upper extremity, left shoulder, bilateral hips, left chest wall and rib cage after falling off his roof, about 13 feet down, sometime yesterday afternoon. He denies hitting his head or any loss of consciousness. He denies any neck or back pain. He denies any numbness or paresthesias or any neurological deficits. Chest x-ray does not show any pneumothorax, rib fractures, or any other acute process. X-ray of the pelvis with bilateral hips does not show any fracture, dislocation, or any acute process. X-ray of the thoracic and lumbar spine was read by radiology as showing some vertebral height loss that is age-indeterminate. However the patient has no tenderness to palpation to the back, midline or paraspinal. X-ray of the left forearm does not show any fracture, dislocation, or any acute process. X-ray of the left humerus shows a mildly displaced proximal humerus fracture of the greater tuberosity. Labs are unremarkable including CBC, metabolic panel and lipase. Vital signs reassuring including being afebrile. The patient was placed in a coaptation splint and in a sling. He was neur ovascular intact both before and after splint placement. He was given 2 different outpatient referrals for local orthopedic groups. We discussed signs/symptoms for which the patient to return emergently to the ER. Otherwise he will follow up with orthopedist in the next few days. Critical Care Time: No Critical care attestation.: If time is entered above; I have spent that time in minutes in the direct care of this critically ill patient, excluding procedure time. ED Disposition Clinical Impression: Fall Qualifiers: Encounter type: initial encounter Qualified Code(s): W19.XXXA - Unspecified fall, initial encounter Proximal humerus fracture Qualifiers: Encounter type: initial encounter Fracture type: closed Fracture morphology: unspecified fracture morphology Laterality: left Qualified Code(s): S42.202A - Unspecified fracture of upper end of left humerus, initial encounter for closed fracture Hypertension Qualifiers: Hypertension type: primary hypertension Qualified Code(s): I10 - Essential (primary) hypertension Disposition: DC- TO HOME OR SELFCARE Is pt being admited?: No Condition: Stable Instructions: Humerus Fracture Treated With Immobilization, Hypertension, Adult, Cast or Splint Care, Adult, Hypertension (ED) Additional Instructions: Please follow-up with an orthopedist in the next few days. I am giving you a referral for 2 different local orthopedic groups, Dr. Gonzalez and Peggy. Remain in the splint until follow-up with the orthopedist. Do not get the spli nt wet or else it will lose its structural integrity. Take your medications as prescribed. You have been prescribed a medication that is sedating and therefore should not be taken prior to driving, working, and responsible for children and in no way should be mixed with alcohol of any quantity. Return to the emergency department with any worsening of your symptoms, new or concerning symptoms not addressed during this current emergency department visit, or with any acute distress. Prescriptions: HYDROcodone/APAP 5-325 [Ryan 5-325 mg TAB] 1 each PO Q6HR PRN #12 tablet PRN Reason: Pain , Severe (7-10) Referrals: PRIMARY CARE, [Primary Care Provider] - 2-3 Days SARWAT GONZALEZ MD [Staff Physician] - 2-3 Days [facility] [Provider Group] - 2-3 Days Time of Disposition: 22:19
[2020-12-23 19:33] LABS: Hematocrit 37.4 % (35.5-45.6); Hemoglobin 12.8 gm/dl (11.8-15.2); Mean Corpuscular HGB Conc 34 % (32-34); Mean Corpuscular Volume 92 fl (84-94); Platelet Count 224 K/mm3 (140-440); Red Blood Count 4.06 M/mm3 (3.65-5.03); Red Cell Distribution Width 14.4 % (13.2-15.2)
[2020-12-23 19:48] LABS: Alanine Aminotransferase 12 units/L (7-56); Albumin 4.1 g/dL (3.9-5); Blood Urea Nitrogen 9 mg/dL (9-20); Calcium 9.7 mg/dL (8.4-10.2); Hemolysis Index 36
[2020-12-23 19:51] LABS: BUN/Creatinine Ratio 13
[2020-12-23 20:21] LABS: RBC Morphology Normal; Total Cells Counted 100
--- NOTE | 2020-12-23 20:39 | XRay Report ---
Lumbar spine 3 views INDICATION: Low back pain following injury IMPRESSION: Multilevel discogenic and facet arthropathy. There is mild loss of vertebral body height involving the L2 and T12 and T11 vertebral bodies, age indeterminate. Moderate neural foraminal steno sis at L5-S1 secondary to discogenic degenerative change Signer Name: Corby Arreaga MD Signed: 12/23/2020 8:35 PM Workstation Name: [id number]
--- NOTE | 2020-12-23 20:41 | XRay Report ---
Thoracic spine 2 views INDICATION: Back pain following injury IMPRESSION: There is mild dextrocurvature of the lumbar spine with mild multilevel discogenic and fac et arthropathy. There is mild loss of vertebral body height involving T8, T9, T10-T11 and T12, age in determinate. There is some osteopenia present diffusely. There is extensive multilevel discogenic deg enerative changes throughout much of the mid and lower thoracic spine. Signer Name: Corby Arreaga MD Signed: 12/23/2020 8:36 PM Workstation Name: [id number]
--- NOTE | 2020-12-23 20:42 | XRay Report ---
Rib series 3 views. Frontal chest single view INDICATION: Rib pain following injury. IMPRESSION: No displaced rib fracture identified. The lungs are clear Signer Name: Corby Arreaga MD Signed: 12/23/2020 8:37 PM Workstation Name: [id number]
--- NOTE | 2020-12-23 20:42 | XRay Report ---
Bilateral hips with pelvis 3 views INDICATION: Hip pain following fall IMPRESSION: No fracture identified. No subluxation. Signer Name: Corby Arreaga MD Signed: 12/23/2020 8:38 PM Workstation Name: [id number]
--- NOTE | 2020-12-23 20:44 | XRay Report ---
Left forearm 2 views INDICATION: Left forearm pain following injury IMPRESSION: No forearm fracture identified. Left humerus 2 views INDICATION: Left humerus pain following injury IMPRESSION: There is a mildly displaced fracture identified involving the greater tuberosity of the p roximal left humerus. No distal humeral fracture identified. Signer Name: Corby Arreaga MD Signed: 12/23/2020 8:39 PM Workstation Name: [id number]
[2020-12-23 22:53] VITALS: BP 155/78
== END 2020-12-23 22:54 | disposition home or self-care (01) ==
LOC: ED 11:42
DX: S42.252A Displaced fracture of greater tuberosity of left humerus, initial encounter for closed fracture (principal); M79.602 Pain in left arm; M25.551 Pain in right hip; M25.552 Pain in left hip; I10 Essential (primary) hypertension; I25.2 Old myocardial infarction; E11.9 Type 2 diabetes mellitus without complications; M19.91 Primary osteoarthritis, unspecified site; R56.9 Unspecified convulsions; F17.200 Nicotine dependence, unspecified, uncomplicated; Z79.899 Other long term (current) drug therapy; Z98.890 Other specified postprocedural states; Z88.0 Allergy status to penicillin; W19.XXXA Unspecified fall, initial encounter; Y93.89 Activity, other specified; Y92.89 Other specified places as the place of occurrence of the external cause; Y99.8 Other external cause status
CPT/HCPCS: 36415; 72070; 72100; 73521; 80053; 83690; 85007; 85025